=== PATIENT | female | born 1945 | race Caucasian/White ===

== ENCOUNTER → 2019-08-26 11:10 | Outpatient (BNVA) | payer MEDICARE, SELFPAY | PROVIDERS: Family Provider Family Medicine; PCP Family Medicine; Visit Provider Family Medicine | DX: E78.5 Hyperlipidemia, unspecified (principal); J30.9 Allergic rhinitis, unspecified; I10 Essential (primary) hypertension | CPT/HCPCS: 80053; 80061; 84443; 85025 ==

== ENCOUNTER → 2020-02-08 10:38 | Outpatient (BNVA) | payer MEDICARE, SELFPAY | PROVIDERS: Family Provider Family Medicine; PCP Family Medicine; Visit Provider Family Medicine | DX: W57.XXXA Bitten or stung by nonvenomous insect and other nonvenomous arthropods, initial encounter (principal); E78.5 Hyperlipidemia, unspecified; I10 Essential (primary) hypertension; Z20.828 Contact with and (suspected) exposure to other viral communicable diseases; R53.83 Other fatigue | CPT/HCPCS: 85025; 86618; 86666; 86757; 87635 ==

== ENCOUNTER 2020-03-09 12:56 | Outpatient (CLI) | payer MEDICARE, SELFPAY ==
--- NOTE | 2020-03-09 13:14 | MM_ITS ---
WS: [id number] SCREENING DIGITAL MAMMOGRAM WITH CAD HISTORY: SCREENING COMPARISON: 01/01/2019 and 11/04/2017 Bilateral CC and MLO views submitted. Computer aided detection analyzed. Breast composition: There are scattered areas of fibroglandular density. No suspicious masses, microc alcifications or architectural distortion. MM/[id number] IMPRESSION: BI-RADS: 1-Negative FOLLOW UP: 1 Year Follow-up
== END 2020-03-09 12:57 | disposition home or self-care (01) ==
LOC: RADSHAW 12:59
PROVIDERS: PCP Family Medicine; Visit Provider Family Medicine
DX: Z12.31 Encounter for screening mammogram for malignant neoplasm of breast (principal)
CPT/HCPCS: 77067

== ENCOUNTER → 2020-03-14 15:41 | Outpatient (BNVA) | payer MEDICARE, SELFPAY | PROVIDERS: PCP Family Medicine; Visit Provider Family Medicine | DX: J02.9 Acute pharyngitis, unspecified (principal); R53.83 Other fatigue; F17.211 Nicotine dependence, cigarettes, in remission; Z71.89 Other specified counseling | CPT/HCPCS: 86308; 87071; 87880 ==

== ENCOUNTER 2020-06-16 13:38 | Outpatient (CLI) | payer MEDICARE, SELFPAY ==
--- NOTE | 2020-06-16 14:15 | USCV_ITS ---
Paulina Warren Age: 74 Gender: F : 1945 Exam Date: 06/16/2020 14:10 Ordering Phys: Ray Murguia M.D ([email or web address]) Technologist: Michelle Reyna Exam Location: [facility] [place] Indication: SHORTNESS OF BREATH BP: 161 / 79 HR: 78 Rhythm: Sinus Technical Quality: Adequate MEASUREMENTS (Male / Female) Normal Values 2D ECHO LV Diastolic Diameter PLAX 3.9 cm 4.2 - 5.9 / 3.9 - 5.3 cm LV Systolic Diameter PLAX 2.7 cm LV Chamber Size 2.3 cm IVS Diastolic Thickness 0.7 cm 0.6 - 1.0 / 0.6 - 0.9 cm IVS Systolic Thickness 1.0 cm LVPW Diastolic Thickness 1.7 cm 0.6 - 1.0 / 0.6 - 0.9 cm LVPW Systolic Thickness 1.8 cm RV Chamber Size 2.3 cm LVOT Diameter 2.0 cm LV Ejection Fraction 2D Teich 59.8 % LV Ejection Fraction MOD 2C 56.3 % LV Ejection Fraction 2C AL 56.5 % LA Diameter 2.8 cm LA Width 2.6 cm LA Height 2.9 cm RA Width 2.6 cm RA Height 2.8 cm Aorta at Sinotubular Diameter 2.0 cm M-MODE LV Diastolic Diameter MM 3.2 cm 4.2 - 5.9 / 3.9 - 5.3 cm LV Systolic Diameter MM 2.3 cm LV Ejection Fraction MM Teich 58.5 % IVS Diastolic Thickness MM 1.2 cm 0.6 - 1.0 / 0.6 - 0.9 cm IVS Systolic Thickness MM 0.9 cm LVPW Diastolic Thickness MM 1.2 cm 0.6 - 1.0 / 0.6 - 0.9 cm LVPW Systolic Thickness MM 1.3 cm Aortic Annulus Diameter 3.0 cm LA Ao Ratio MM 1.0 MV E Point Septal Separation 0.6 cm DOPPLER AV Peak Velocity 155.0 cm/s LVOT Peak Velocity 104.7 cm/s AV Area Cont Eq vti 2.1 cm squared AV Area Cont Eq pk 2.1 cm squared MV Area PHT 6.3 cm squared Mitral E to A Ratio 0.8 MV E' Velocity 51.0 cm/s Mitral E to MV E' Ratio 7.5 Mitral E to LV E' Lateral Ratio 7.3 Mitral E to LV E' Septal Ratio 7.8 TR Peak Velocity 324.0 cm/s TR Peak Gradient 42.0 mmHg TV Peak E Velocity 84.0 cm/s Right Atrial Pressure 3.0 mmHg Pulmonary Artery Systolic Pressu 45.0 mmHg PV Peak Velocity 98.0 cm/s RV Acceleration Time 0.1 s RV Ejection Time 0.3 s RV AcT/ET 0.4 FINDINGS Left Ventricle Normal left ventricular size. LV systolic function is mildly reduced with EF of 40-45%. Mild to moderate hypokinesis of the basal to apical anterior and anterolateral quan. Grade 1 diastolic dysfunction Right Ventricle The right ventricle is normal in size and function. Right Atrium The right atrium is normal in size. Left Atrium The left atrium is normal in size. Mitral Valve Structurally normal mitral valve without significant stenosis or prolapse. There is no mitral regurgitation. Aortic Valve Structurally normal aortic valve without significant sclerosis or stenosis. There is no aortic regurgitation. Tricuspid Valve Structurally normal tricuspid valve without significant stenosis or regurgitation. Insufficient TR jet to calculate RVSP Pulmonic Valve Structurally normal pulmonic valve without significant stenosis. There is no pulmonic regurgitation. Pericardium Normal pericardium without effusion. Aorta Normal ascending aorta dimension. CONCLUSIONS LV systolic function is mildly reduced with EF of 40-45%. Regional wall motion abnormalities as described above Grade 1 diastolic dysfunction No significant valvular heart disease. No comparison studies are available. Ray Murguia MD (Electronically Signed) Final Date: 22 June 2020 10:22 S
== END 2020-06-16 13:39 | disposition home or self-care (01) ==
LOC: RAD 13:39
PROVIDERS: PCP Family Medicine; Visit Provider Internal Medicine
DX: R06.02 Shortness of breath (principal)
CPT/HCPCS: 93306

== ENCOUNTER → 2020-07-01 10:28 | Outpatient (BNVA) | payer MEDICARE, SELFPAY | PROVIDERS: PCP Family Medicine; Visit Provider Internal Medicine | DX: R06.00 Dyspnea, unspecified (principal); R53.83 Other fatigue | CPT/HCPCS: 87635 ==

== ENCOUNTER 2020-07-06 08:49 | Day surgery (SDC) | payer MEDICARE, SELFPAY ==
[2020-07-01 10:17] LABS: Basophils % 0.6 %; Eosinophils % 0.6 %; Hematocrit 38.5 % (37.0-47.0); Hemoglobin 12.3 g/dL (11.5-15.3); Lymphocytes # 1.2 10^3/uL (0.8-4.8); Lymphocytes % 18.6 %; Mean Corpuscular HGB Conc 31.9 g/dL (30.0-36.0); Mean Corpuscular Hemoglobin 29.6 pg (28.0-34.0); Mean Corpuscular Volume 92.8 fL (81-99); Mean Platelet Volume 9.3 fL (7.4-10.4); Monocytes # 0.4 10^3/uL (0.2-0.9); Neutrophils # 4.56 10^3/uL (1.8-7.7); Nucleated Red Blood Cells % 0 %; Platelet Count 283 10^3/cmm (130-400); Red Blood Count 4.15 10^6/uL (4.1-5.3); Red Cell Distribution Width 11.4 % (12.1-15.1); White Blood Count 6.3 10^3/uL (4.0-10.0)
[2020-07-01 10:33] LABS: Blood Urea Nitrogen 14 mg/dL (8-23); Calcium 9.8 mg/dL (8.5-10.5); Carbon Dioxide 29 mmol/L (22-29); Glucose 109 mg/dL (65-115)
[2020-07-01 10:45] LABS: INR 0.94 (0.83-1.21); Prothrombin Time (Patient) 12.8 Seconds (12.0-15.1)
[2020-07-01 13:14] LABS: Anion Gap 13.5 (5-19); Chloride 100 mmol/L (98-107); Osmolality Calculated 287 mOsm/kg (285-295); Potassium 4.5 mmol/L (3.5-5.1); Sodium 138 mmol/L (136-145)
[2020-07-05 08:28] VITALS: BMI 22.8
[2020-07-06] VITALS (25 sets, daily range): BP systolic 86–160; BP diastolic 53–79; PULSE 64–93; RESP 12–18; TEMP 36.4–37.1; O2SAT 93–98
[2020-07-06] MEDS: diphenhydrAMINE 50 mg Capsule PO (09:24)
--- NOTE | 2020-07-06 10:00 | XACV_ITS ---
Exam Room: [facility] Ht: 157 cm Wt: 57 kg BSA: 1.58 m2 Gender: Female : 1945 Exam Priority: Routine Procedure(s): Procedure Description: Diagnostic procedure Procedure Description: Left Heart Catheterization Procedure Description: Right Heart Catheterization Procedure Description: O2 saturation Procedure Description: Pressure Wire Diagnostic Cath Status: Elective Diagnostic Findings * Mid Left Anterior Descending Coronary Artery: Moderate 40-50% stenosis, SOBEIDA: 3 flow. Plan for FFR of mid LAD. * Right heart cath findings: RA pressure: 6/4 (4)mmHg, RV pressure: 30/1 (5)mmHg PA pressure: 27/10(17)mmHg PCW: 8/7(6)mmHg TPmmHg, Cardiac output by Torito: 4.55 l/min, CI: 2.9l/min/m2 PVR: 2.41wood units. * LM has 0% stenosis. * CX has 0% stenosis. * RCA has 0% stenosis. * Coronary angiography shows right dominance. Interventional Findings * Procedure detail: We engaged left main artery using XB 3.5 guide catheter. IV heparin was used to maintain an ACT above 250 seconds. We initially performed FFR of proximal LAD stenosis which was nonischemic with a value of 0.88. Pressure wire was removed. At this time final angiogram was performed that showed SOBEIDA-3 flow without any complications. Guide catheter was removed. Hemostasis was obtained with TR band. Patient left the Project/Production Manager Imaging in a stable condition.. Conclusions 1. There is moderate mid LAD stenosis. s/p FFR which had a non-ischemic value of 0.88. 2. Normal right and left sided cardiac pressures. 3. Mild left ventricular systolic dysfunction. Ejection fraction of 45%. Recommendations * Aggressive risk factor control. * Outpatient cardiology follow up. Interventional RX Recommendation: medical therapy and/or counseling Diagnostic RX Recommendation: medical therapy and/or counseling Anticoagulation: Heparin Ventriculography Ejection Fraction: 45.0 % Pressures Phase:Rest AO : 148 / 69 ( 103 ) @ 6:14:00 AM 148 / 68 ( 103 ) @ 6:14:00 AM LV : 135 / -5 / @ 6:13:00 AM 135 / -6 / @ 6:13:00 AM 142 / -4 / @ 6:14:00 AM 141 / -5 / @ 6:14:00 AM 141 / -5 / @ 6:14:00 AM RV : 30 / 1 / @ 5:41:00 AM PA : 27 / 10 ( 17 ) @ 5:39:00 AM RA : a wave = v wave = mean = 4 @ 5:41:00 AM O2 Content Phase:Rest PA : O2 Content O2: 70.1 @ 6:14:00 AM Saturations Phase:Rest AO : 90 @ 6:14:00 AM PA : 70 @ 6:14:00 AM Cardiac Output Phase:Rest Torito : 5 @ 6:14:00 AM Torito Cardiac Index: 3 @ 6:14:00 AM Valves Phase:DefaultPhase AV : 0.0 @ 10:26:06 AM AV Mean Gradient: 0.0 @ 10:26:06 AM Clinical Evaluation EBL: 5mL-10mL Procedural Details Procedure Consent Obtained. Admit Source: Out Patient. Pre-Procedure Time Out. Identified patient by full name and date of as verbalized by the patient/guarantor. Does the consent match the physician's order: Yes. Accurate & Complete Informed Consent: Yes. Inpatient/Outpatient History & Physical on Chart: Yes. If H&P is completed, is and addenduem needed: N/A; If yes, is the addendum complete: N/A. Visualize and Verify Site with Patient/Guarantor: N/A. Relevant Radiology Images available: N/A. Pre-op teaching completed and patient verbalized understanding. The risks, benefits, and alternatives of sedation and/or procedure were discussed by physician. The patient agrees to continue. Procedure started. [facility] Clinical Fraility Score: 3: Managing Well. Project/Production Manager Imaging Indications: LV Dysfunction. Chest Pain Symptom Assessment: Atypical Angina. Cardiovascular Instability: NO. Correct patient, site and procedure confirmed by cath team. PERRLA. Strong, equal hand laboratory apparatus glass grinder bilaterally. Lungs clear x 5 lobes. IV Site on Arrival: 20 gauge in the left anticubital. Pre Procedural Pulses: right dorsalis pedis was 1+. Pre Procedural Pulses: left dorsalis pedis was 3+. Pre Procedural Pulses: bilateral posterior tibial was 3+. Pre Procedural Pulses: bilateral radial was 3+. bilateral groins was prepped with chloroprep then draped in the usual sterile fashion. right radial was prepped with chloroprep then draped in the usual sterile fashion. Physician notified. Baseline sample Acquired. HR: 90 BPM. Physician arrived. Physician scrubbed in. Immediate Pre-Procedure Time Out. Correct Patient: Yes; Correct Procedure: Yes; Correct Site: Yes; Correct Patient Position: Yes; Correct Supplies: Yes; Dried Flammable Prep: Yes; Blood Products Available: N/A;. Lidocaine 1% infiltrated to the right groin. Venous access obtained. more lidocaine 1%. [place] VIP catheter inserted. [place] out. Lidocaine 1% infiltrated to the right radial. Arterial access obtained. oxygen placed 2LPM NC. A 5 solomon islander TIG catheter in over wire. Multiple views taken of left coronary artery. Catheter redirected to the RCA. Multiple views taken of right coronary artery. Catheter out. 6 sol[place] islander XB 3.5 guide catheter was inserted over the wire. pressure wire inserted. An FFR value of 0.88 was obtained for a lesion located at Mid LAD. pressure wire out. Guide catheter out. A 5 solomon islander Angled Pig catheter in over wire. EDP Sample taken: LV 135/-6,19; HR: 70 BPM; SpO2: 100%. LV gram performed in MEYERS @ 10 mL/second for a total of 30 mL. EDP Sample taken: LV 142/-5,20; HR: 70 BPM; SpO2: 100%. Pullback taken: LV 141/-6,20; AO 148/69(103); Mean: 0mmHg, Peak to Peak: 0mmHg, SEP: 6sec/min; HR: 70 BPM; SpO2: 100%. TR band placed. Hemostasis obtained. Sheath(s) sutured into position with 2-0 silk and sterile 4x4's and Op-site applied over the site. No oozing or signs and symptoms of hematoma noted. Post Procedure: Pulses reassessed and unchanged. PERRLA. Strong, equal hand laboratory apparatus glass grinder bilaterally. No VTE prophylaxis required. Medication's Wasted: Lidocaine 1% = 15 mL. Medication's Wasted: Nitro = 49.8 mg. Medication's Wasted: Heparin = 4000 units. Total IV fluids: 100 mL. Contrast type used: Omnipaque 300 mgI/mL, 500 mL bottle. Contrast Material : Omnipaque 145 ml. A TR Band was successful obtaining hemostatsis at the Right Radial artery insertion site. A Suture was successful obtaining hemostatsis at the Right Femoral vein insertion site. Post-op diagnosis: moderate LAD stenosis, FFR normal. Complications: none. Estimated blood loss: 5mL-10mL. Procedure completed. Patient transferred by bed to 1st floor. Vital chart was stopped. Catheter out. Access Site Site: Right Femoral vein Sheath Size: 8 Fr Hemostasis Method: Suture Hemostasis Success: Successful Site: Right Radial artery Sheath Size: 6 Fr Hemostasis Method: TR Band Hemostasis Success: Successful Procedure Medications Start: 10:29 AM Stop: 10:29 AM Medication: Versed Amount: 1 mg Route: I.V. Start: 10:29 AM Stop: 10:29 AM Medication: Fentanyl Amount: 50 mcg Route: I.V. Start: 10:42 AM Stop: 10:42 AM Medication: Versed Amount: 1 mg Route: I.V. Start: 10:42 AM Stop: 10:42 AM Medication: Fentanyl Amount: 50 mcg Route: I.V. Start: 10:49 AM Stop: 10:49 AM Medication: Nitrogylcerin Amount: 200 mcg Route: I.A. Start: 10:51 AM Stop: 10:51 AM Medication: Heparin Amount: 5000 units Route: I.V. Start: 10:57 AM Stop: 10:57 AM Medication: Heparin Amount: 2000 units Route: I.V. Start: 11:06 AM Stop: 11:06 AM Medication: Adenosine (Adenocard) Amount: 479 Route: I.V. I, the attending physician, have reviewed and verified all procedure medications. Yes, all medications given per verbal order History/Risk Factors Hypertension: Yes Dyslipidemia: Yes Tobacco Use: Former Report Signatures Finalized by Ray Murguia MD on 07/19/2020 05:27 PM
--- NOTE | 2020-07-06 10:20 | PM.HP ---
Providers/Chief Complaint Admitting Physician: Ray Murguia MD Primary Care Provider: Kate Herron MD Chief Complaint: cath History of Present Illness 74-year-old woman with past medical history of hypertension and hyperlipidemia. No significant coronary artery disease. She has been noticing shortness of breath especially on exertion since December. Patient has remote history of smoking. She denies chest pain. However dyspnea on exertion has been worsening. ECHO showed decrease in the heart function. Patient has occasional jaw pain Plan for a right and left heart cath today Review of Systems General: Reports: 10 or more systems reviewed and unremarkable except in HPI and below Const: Denies: fever(s), chills, body aches or fatigue Eyes: Denies: change in vision or blurry vision ENMT: Denies: throat pain, ear or mastoid pain, nasal discharge or nasal congestion Card: Reports: lightheadedness and dyspnea on exertion; Denies: chest pain, palpitations, irregular heart rhythm, swelling of feet/ankles, orthopnea, leg pain with exertion or acrocyanosis Resp: Reports: dyspnea; Denies: productive cough, non-productive cough, wheezing or chest congestion GI: Denies: abdominal pain, GI cramping, change in bowel habits or hematochezia : Denies: dysuria or urinary frequency Musc: Reports: neck pain; Denies: extremity pain or extremity swelling Skin/Breast: Denies: rash, pruritus, erythema or sores Neuro: Reports: headache(s) and weakness in extremities (bilateral lower extremity); Denies: numbness in extremities, difficulty walking, dizziness or vertigo Psych: Denies: anxiety or depression Gaurav/Lymph: Denies: easy bruising or easy bleeding Medications/Allergies Home Medications Medication Instructions Recorded Confirmed Last Taken Type ascorbate calcium (vitamin C) 500 500 mg PO QDAY 04/30/19 07/05/20 07/05/20 07:30 History mg tablet cyanocobalamin (vitamin B-12) 1,000 mcg PO QDAY 04/30/19 07/05/20 07/05/20 07:30 History 1,000 mcg tablet,extended release fluticasone propionate 50 1 spray INTRANASAL BID PRN 04/30/19 07/05/20 07/05/20 07:30 History mcg/actuation nasal spray,suspension vitamin E 200 unit capsule 200 unit PO QDAY 04/30/19 07/05/20 07/05/20 07:30 History aspirin 81 mg tablet,delayed 81 mg PO DAILY 08/26/19 07/06/20 07/06/20 07:00 History release cetirizine 10 mg tablet 10 mg PO DAILY #90 tab 08/26/19 07/05/20 07/05/20 07:30 Rx lisinopril 10 mg tablet 10 mg PO QDAY #90 tab 02/08/20 07/05/20 07/06/20 07:00 Rx pravastatin 20 mg tablet 20 mg PO QDAY #90 tab 02/08/20 07/06/20 07/05/20 19:00 Rx famotidine 40 mg tablet 40 mg PO .qhs #30 tab 02/25/20 07/05/20 07/05/20 07:30 Rx ondansetron 4 mg disintegrating 4 mg PO Q6H PRN 03/14/20 07/05/20 07/05/20 07:30 History tablet Allergies Allergy/AdvReac Type Severity Reaction Status Date / Time No Known Allergies Allergy Verified 07/05/20 08:23 PFSH Acute PFSH: Medical History Anxiety Basal cell carcinoma History of gastric ulcer Hyperlipidemia Hypertension Vitamin D insufficiency Surgical History History of appendectomy History of tubal ligation Family History Other Hypertension Social History Smoking and tobacco status: former smoker Quit status (tobacco): has quit using tobacco Year quit tobacco: 1970 Alcohol intake: never Household members: spouse Vitals/I&O/Wt Last Vital Signs Temp 98.7 F 07/06/20 09:24 Pulse 93 07/06/20 09:24 Resp 18 07/06/20 09:24 BP 160/79 07/06/20 09:24 Pulse Ox 96 07/06/20 09:24 Weight last 48 hrs Weight 125 lb Physical Exam Narrative: EXAM NARRATIVE: GENERAL: Patient is alert, awake and oriented x3. [] NECK: No jugular vein distension. [] HEENT: No cyanosis. No icterus. No pallor. [] HEART: Regular S1 and S2. No murmur, rub or gallop. [] LUNGS: Clear to auscultate bilaterally. [] ABDOMEN: Soft, nontender and nondistended. Positive bowel sounds. No guarding, rebound or tenderness. [] CENTRAL NERVOUS SYSTEM: Grossly nonfocal. [] EXTREMITIES: Lower extremities with no edema bilaterally. Pulses palpable in the lower extremities, both dorsalis pedis and posterior tibial. [] Data : 07/01/20 10:07 07/01/20 10:07 A&P Assessment and plan (1) Dyspnea on exertion: Status: Acute (2) HFrEF (heart failure with reduced ejection fraction): Status: Acute (3) Hypertension: Status: Acute (4) Hyperlipidemia: Status: Acute Patient has been having significant dyspnea on exertion that is worsening recently. She has occasional jaw discomfort however no chest pain. Given her recent diagnosis of heart failure with reduced EF(EF was 40 to 45% on last echocardiogram) with regional wall motion abnormalities, we will proceed with right and left heart cath. Risks and benefits of the procedure have been described to the patient. Risks including bleeding, infection, abnormal heart rhythm, kidney function worsening, heart attack, stroke or have been described. Patient understands the risks and benefits and wants to proceed with the procedure. Attestations Medical Necessity Statement*: Care not expected to cross 2 midnights. Patient is here for outpatient right and left heart cath with possible percutaneous coronary intervention. Coding Level of Care Code Acute Central Supply Clerk for Marisol Roberson Diagnoses Dyspnea on exertion R06.00 HFrEF (heart failure with reduced ejection fraction) I50.20 Hypertension I10 Hyperlipidemia E78.5
--- NOTE | 2020-07-06 12:55 | PC.NURSE ---
Patient to CSU from record label internship at 1130. 2 nurse verification of insertion sites. TR band intact, asymptomatic. Right groin, no sheath present upon arrival to floor, OIL WELL PUMPER, asymptomatic. Site cleaned and dressing applied. Dr. Murguia notified sheath was no longer in place. Verbal order to hold direct pressure for 5 minutes. Order implemented. Patient tolerated well. Nurse to continue to monitor. Patient educated on activity restrictions, verbalized understanding and did not have any further questions. Patient oriented to room and call light. VSS, patient A&O.
--- NOTE | 2020-07-06 13:56 | PC.NURSE ---
TR Band started removing air at 1340.
--- NOTE | 2020-07-06 15:51 | PC.NURSE ---
Ambulated Patient's bedrest time is up, patient requested to ambulate. When patient stood up from bed she had bleeding from Right Radial access site. Arm elevated and pressure added to TR band until bleeding stopped. Patient's arm cleansed, new gown placed on patient. Patient then ambulated in chinchilla with standby assistance.
--- NOTE | 2020-07-06 17:22 | PC.NURSE ---
TR Band removed 1645, no bleeding noted. 2x2 quadrupled over access site, biocclusive applied. Patient monitored for 45 minutes without bleeding. No hematoma or bleeding noted to right radial or right femoral access site.
--- NOTE | 2020-07-06 17:25 | PC.NURSE ---
DC instructions given to patient and , explained post op precautions/instructions. Patient wheeled to private vehicle by this nurse, driving, belongings with patient.
== END 2020-07-06 17:30 | disposition home or self-care (01) ==
LOC: CCL 08:49 → CSU 10:22
PROVIDERS: PCP Family Medicine; Visit Provider Internal Medicine
DX: I25.10 Atherosclerotic heart disease of native coronary artery without angina pectoris (principal); R06.00 Dyspnea, unspecified; I11.0 Hypertensive heart disease with heart failure; I50.20 Unspecified systolic (congestive) heart failure; E78.5 Hyperlipidemia, unspecified; R53.83 Other fatigue; Z79.82 Long term (current) use of aspirin; F41.9 Anxiety disorder, unspecified; E55.9 Vitamin D deficiency, unspecified; Z87.891 Personal history of nicotine dependence
CPT/HCPCS: 36415; 80048; 85025; 85610; 93453; 93571; C1751; C1769; C1887; C1894; J0153; J1644; J2250; J3010; J7030; Q0163; Q9967

== ENCOUNTER → 2020-07-13 13:53 | Outpatient (BNVA) | payer MEDICARE, SELFPAY | PROVIDERS: PCP Family Medicine; Visit Provider Nurse Practitioner Family | DX: I50.20 Unspecified systolic (congestive) heart failure (principal); I10 Essential (primary) hypertension | CPT/HCPCS: 80048 ==

== ENCOUNTER → 2020-08-29 09:30 | Outpatient (BNVA) | payer MEDICARE, SELFPAY | PROVIDERS: PCP Family Medicine; Visit Provider Family Medicine | DX: E55.9 Vitamin D deficiency, unspecified (principal); E78.2 Mixed hyperlipidemia; I10 Essential (primary) hypertension; K21.9 Gastro-esophageal reflux disease without esophagitis; E78.5 Hyperlipidemia, unspecified; J30.9 Allergic rhinitis, unspecified; I25.10 Atherosclerotic heart disease of native coronary artery without angina pectoris | CPT/HCPCS: 80053; 80061; 82306; 84443; 85025 ==

== ENCOUNTER → 2020-10-06 17:00 | Outpatient (BNVA) | payer MEDICARE, SELFPAY | PROVIDERS: PCP Family Medicine; Visit Provider Family Medicine | DX: Z20.828 Contact with and (suspected) exposure to other viral communicable diseases (principal) | CPT/HCPCS: 87635 ==

== ENCOUNTER → 2020-11-16 11:40 | Outpatient (BNVA) | payer MEDICARE, SELFPAY | PROVIDERS: PCP Family Medicine; Visit Provider Internal Medicine | DX: Z01.812 Encounter for preprocedural laboratory examination (principal); Z20.822 Contact with and (suspected) exposure to COVID-19 | CPT/HCPCS: 87635 ==

== ENCOUNTER → 2020-12-23 10:46 | Outpatient (BNVA) | payer MEDICARE, SELFPAY | PROVIDERS: PCP Family Medicine; Visit Provider Internal Medicine | DX: Z20.822 Contact with and (suspected) exposure to COVID-19 (principal); I50.20 Unspecified systolic (congestive) heart failure; R06.00 Dyspnea, unspecified | CPT/HCPCS: 87635 ==

== ENCOUNTER 2020-12-29 12:28 | Outpatient (CLI) | payer MEDICARE, SELFPAY ==
--- NOTE | 2020-12-29 13:13 | PFTS_ITS ---
Date of Study:12/29/20 Date of Dictation: 12/30/2020 MECHANICS: Forced vital capacity (FVC) is normal. Forced expiratory volume in one second (FEV1) is normal. FEV1/FVC is normal. There is no postbronchodilator study. FLOW VOLUME LOOP: Normal . LUNG VOLUMES: Total lung capacity (TLC) is normal. Residual volume (RV) is increased to suggestive of air trapping. DIFFUSING CAPACITY FOR CARBON MONOXIDE: Normal normal . INTERPRETATION: The pulmonary function tests are normal except mild air trapping noted on lung volumes indirectly suggestive of possible airway obstruction. Correlate clinically. MTDD
== END 2020-12-29 12:29 | disposition home or self-care (01) ==
PROVIDERS: PCP Family Medicine; Visit Provider Internal Medicine
DX: R06.00 Dyspnea, unspecified (principal); I50.20 Unspecified systolic (congestive) heart failure
CPT/HCPCS: 94010; 94726; 94729

== ENCOUNTER → 2021-02-01 17:21 | Outpatient (BNVA) | payer MEDICARE, SELFPAY | PROVIDERS: PCP Family Medicine; Visit Provider Nurse Practitioner Family | DX: R11.0 Nausea (principal); R10.9 Unspecified abdominal pain; R53.83 Other fatigue; M79.10 Myalgia, unspecified site; K21.9 Gastro-esophageal reflux disease without esophagitis; R53.1 Weakness; R68.89 Other general symptoms and signs; R06.00 Dyspnea, unspecified; E55.9 Vitamin D deficiency, unspecified; N95.1 Menopausal and female climacteric states; Z79.899 Other long term (current) drug therapy | CPT/HCPCS: 80053; 82150; 82306; 82607; 82746; 83690; 85025 ==

== ENCOUNTER → 2021-04-24 11:38 | Outpatient (BNVA) | payer MEDICARE, SELFPAY | PROVIDERS: PCP Family Medicine; Visit Provider Nurse Practitioner Family | DX: I10 Essential (primary) hypertension (principal); E78.2 Mixed hyperlipidemia; F41.9 Anxiety disorder, unspecified; E55.9 Vitamin D deficiency, unspecified | CPT/HCPCS: 80053; 80061 ==

== ENCOUNTER → 2021-08-04 09:30 | Outpatient (BNVA) | payer MEDICARE, SELFPAY | PROVIDERS: PCP Nurse Practitioner Family; Visit Provider Nurse Practitioner Family | DX: I10 Essential (primary) hypertension (principal); E78.5 Hyperlipidemia, unspecified; I50.20 Unspecified systolic (congestive) heart failure; F41.9 Anxiety disorder, unspecified; J45.909 Unspecified asthma, uncomplicated; Z83.1 Family history of other infectious and parasitic diseases; Z12.39 Encounter for other screening for malignant neoplasm of breast; Z78.0 Asymptomatic menopausal state; K21.9 Gastro-esophageal reflux disease without esophagitis | CPT/HCPCS: 80053; 80061 ==

== ENCOUNTER 2021-08-31 12:49 | Outpatient (CLI) | payer MEDICARE, SELFPAY ==
--- NOTE | 2021-08-31 13:28 | MM_ITS ---
WS: [id number] BILATERAL 3D TOMOSYNTHESIS DIGITAL SCREENING MAMMOGRAPHY WITH CAD CLINICAL INFORMATION: screening HISTORY: Screening mammogram. No current complaints. COMPARISON: March 09, 2020 TECHNIQUE: Bilateral CC and MLO views. FINDINGS: Scattered fibroglandular densities bilaterally. Vascular calcification. No suspicious focal mass, asy mmetry, calcifications, or architectural distortion. No evidence of malignancy. MM/[place] [id number] IMPRESSION: BI-RADS: 2-Benign FOLLOW UP: 1 Year Follow-up Recommend return to annual screening mammography.
== END 2021-08-31 12:50 | disposition home or self-care (01) ==
LOC: RAD 12:53
PROVIDERS: PCP Nurse Practitioner Family; Visit Provider Nurse Practitioner Family
DX: Z12.31 Encounter for screening mammogram for malignant neoplasm of breast (principal)
CPT/HCPCS: 77063; 77067

== ENCOUNTER 2021-09-05 14:34 | Outpatient (CLI) | payer MEDICARE, SELFPAY ==
--- NOTE | 2021-09-05 14:41 | XR_ITS ---
WS: [id number] DEXA (DUAL ENERGY X-RAY ABSORPTIOMETRY) Bone mineral density was performed using a Jasper machine. HISTORY: screening COMPARISON: None available. Lumbar spine BMD (L1-L4): 0.990 g/cm2 T score: -1.6 Z score: 0.5 Total hip BMD: Left: 0.688 g/cm2. T score: -2.5 Z score: -0.4 Right: 0.725 g/cm2. T score: -2.2 Z score: -0.1 10 year probability of a major osteoporotic fracture is XR/XR DEXA axial skeleton* [id number] IMPRESSION: OSTEOPOROSIS based upon the WHO classification for females.
== END 2021-09-05 14:35 | disposition home or self-care (01) ==
LOC: RAD 14:34
PROVIDERS: PCP Nurse Practitioner Family; Visit Provider Nurse Practitioner Family
DX: Z13.820 Encounter for screening for osteoporosis (principal); Z78.0 Asymptomatic menopausal state; M81.0 Age-related osteoporosis without current pathological fracture
CPT/HCPCS: 77080

== ENCOUNTER 2021-10-20 09:45 | Outpatient (CLI) | payer MEDICARE, SELFPAY ==
--- NOTE | 2021-10-20 10:00 | US_ITS ---
WS: [id number] ULTRASOUND ABDOMEN LIMITED CLINICAL INFORMATION: Nausea COMPARISON: None. FINDINGS: Liver Size: Normal. Craniocaudal length: 11.9 cm. Echogenicity: Normal. Surface nodularity: None. Mass (size and location): Incidental RIGHT hepatic cyst measuring 1.4 x 1.7 x 2.3 cm with through tra nsmission. Bile ducts Intrahepatic ducts: Normal. Common bile duct diameter: 0.3 cm. Gallbladder Normal. Gallstones: None. Gallbladder sludge: None. Gallbladder wall thickening: None. Pericholecystic fluid: None. Sonographic Kelley sign: Absent. Pancreas Normal as visualized. Right kidney: Normal. Hydronephrosis: None. Size: 9.1 cm x 5.1 cm x 2.9 cm. Abdominal aorta and IVC Visualized portions are normal. Ascites: None. US/US gall bladder [id number] IMPRESSION: 1. Normal gallbladder. 2. Simple RIGHT hepatic cyst measuring 1.4 x 1.7 x 2.3 cm 3. Normal common bile duct. 4. No hydronephrosis in RIGHT kidney.
== END 2021-10-20 09:46 | disposition home or self-care (01) ==
LOC: RAD 09:46
PROVIDERS: PCP Nurse Practitioner Family; Visit Provider Nurse Practitioner Family
DX: R11.0 Nausea (principal); R10.9 Unspecified abdominal pain; K76.89 Other specified diseases of liver
CPT/HCPCS: 76705

== ENCOUNTER → 2022-02-06 11:36 | Outpatient (BNVA) | payer MEDICARE, SELFPAY | PROVIDERS: PCP Nurse Practitioner Family; Visit Provider Nurse Practitioner Family | DX: R00.2 Palpitations (principal); M81.0 Age-related osteoporosis without current pathological fracture; R53.1 Weakness; R53.83 Other fatigue; I50.20 Unspecified systolic (congestive) heart failure; E55.9 Vitamin D deficiency, unspecified; K21.9 Gastro-esophageal reflux disease without esophagitis; E78.5 Hyperlipidemia, unspecified; I10 Essential (primary) hypertension; M79.10 Myalgia, unspecified site; F41.9 Anxiety disorder, unspecified; E78.2 Mixed hyperlipidemia; J30.9 Allergic rhinitis, unspecified; J45.909 Unspecified asthma, uncomplicated | CPT/HCPCS: 80053; 80061; 84443 ==

== ENCOUNTER → 2022-07-16 15:20 | Outpatient (BNVA) | payer MEDICARE, SELFPAY | PROVIDERS: PCP Nurse Practitioner Family; Visit Provider Nurse Practitioner Family | DX: M25.552 Pain in left hip (principal); I50.20 Unspecified systolic (congestive) heart failure; E78.5 Hyperlipidemia, unspecified; I10 Essential (primary) hypertension; F41.9 Anxiety disorder, unspecified; E55.9 Vitamin D deficiency, unspecified; M79.10 Myalgia, unspecified site | CPT/HCPCS: 73502; 80053; 80061; 82306 ==

== ENCOUNTER → 2022-08-08 09:29 | Outpatient (BNVA) | payer MEDICARE, SELFPAY | PROVIDERS: PCP Nurse Practitioner Family; Referring Provider Nurse Practitioner Family; Visit Provider Specialist | DX: M16.12 Unilateral primary osteoarthritis, left hip (principal); M54.50 Low back pain, unspecified | CPT/HCPCS: 72110; 73502; 99204 ==

== ENCOUNTER → 2022-08-22 09:02 | Outpatient (BNVA) | payer MEDICARE, SELFPAY | PROVIDERS: PCP Nurse Practitioner Family; Visit Provider Nurse Practitioner Family | DX: Z83.1 Family history of other infectious and parasitic diseases (principal) | CPT/HCPCS: 86618; 86666; 86757 ==

== ENCOUNTER 2022-08-28 10:31 | Outpatient (CLI) | payer MEDICARE, SELFPAY ==
--- NOTE | 2022-08-28 11:00 | MR_ITS ---
WS: [id number] EXAMINATION: MR hip LT wo con* [id number] ORDER DATE: 08/28/2022 11:37 AM COMPARISON: None. HISTORY: left hip pain CONTRAST: None. TECHNIQUE: Coronal STIR of the Pelvis. Coronal proton density, coronal T1, axial T2 fat sat, axial T1 , sagittal T2 fat sat, and sagittal T1 performed of the hip. After contrast, axial T1 fat sat, coron al T1 fat sat, and sagittal T1 fat sat were performed. FINDINGS: Prominent fluid and edema along the LEFT greater trochanter compatible with trochanteric bu rsitis. No acute LEFT hip fractures. Small uterine fibroids partially visualized. Normal anatomic alignment. No acute fractures. Moderate degenerative arthritis both hips with joint space narrowing. Normal bone marrow signal in the pelvis and sacrum. Normal femoral head bilaterally. No evidence of avascular necrosis or acute fracture. Proximal femoral shafts appear normal bilaterally. Normal visualized pubic rami. MR/MR hip LT wo con* [id number] IMPRESSION: 1. Fluid and edema about the LEFT greater trochanter compatible with trochante xavi bursitis. 2. No acute hip fractures. 3. Moderate degenerative arthritis both hips with joint space narrowing. 4. Small uterine fibroids. 5. No other acute findings.
== END 2022-08-28 10:32 | disposition home or self-care (01) ==
LOC: RAD 10:34
PROVIDERS: PCP Nurse Practitioner Family; Visit Provider Specialist
DX: M16.0 Bilateral primary osteoarthritis of hip (principal); M54.50 Low back pain, unspecified; D25.9 Leiomyoma of uterus, unspecified
CPT/HCPCS: 73721; 99204

== ENCOUNTER 2022-09-05 13:29 | Outpatient (CLI) | payer MEDICARE, SELFPAY ==
--- NOTE | 2022-09-05 14:01 | MM_ITS ---
WS: [id number] BILATERAL 3D TOMOSYNTHESIS DIGITAL SCREENING MAMMOGRAPHY WITH CAD CLINICAL INFORMATION: SCREENING HISTORY: Screening mammogram. No current complaints. COMPARISON: August 31, 2021 TECHNIQUE: Bilateral CC and MLO views. FINDINGS: Scattered fibroglandular densities bilaterally. No suspicious focal mass, asymmetry, calcifications, or architectural distortion. No evidence of malignancy. Vascular calcification. MM/[place] [id number] IMPRESSION: BI-RADS: 2-Benign FOLLOW UP: 1 Year Follow-up Recommend return to annual screening mammography.
== END 2022-09-05 13:30 | disposition home or self-care (01) ==
LOC: RAD 13:33
PROVIDERS: PCP Nurse Practitioner Family; Visit Provider Nurse Practitioner Family
DX: Z12.31 Encounter for screening mammogram for malignant neoplasm of breast (principal)
CPT/HCPCS: 77063; 77067

== ENCOUNTER → 2022-09-18 13:59 | Outpatient (BNVA) | payer MEDICARE, SELFPAY | PROVIDERS: PCP Nurse Practitioner Family; Visit Provider Surgery | DX: R11.0 Nausea (principal); R10.11 Right upper quadrant pain | CPT/HCPCS: 99203 ==

== ENCOUNTER 2022-10-10 08:24 | Day surgery (SDC) | payer MEDICARE, SELFPAY ==
[2022-10-08 11:33] VITALS: BMI 22.1
[2022-10-10 09:08] VITALS: BP 183/90; PULSE 68; RESP 16; TEMP 36.4; O2SAT 97
--- NOTE | 2022-10-10 09:23 | W.PM.OPSUD ---
Surgery/Procedure H&P Update DATE OF PROCEDURE: October 10, 2022 DATE H&P PERFORMED: 09/18/22 H&P UPDATE INFORMATION: I have reviewed H&P completed within last 30 days, I have examined patient prior to procedure and No changes to prior documentation PLANNED PROCEDURE: Operation Date: 10/10/22 09:45 Proposed Procedures p EGD(Not Applicable) [place] [id number] egd [id number] colon, R11.0, Z12.11(Not Applicable) - Nigel Pace DO
[2022-10-10] MEDS: sodium chloride 0.9% 1,000 ML 30 ML IV (09:28)
--- NOTE | 2022-10-10 09:28 | P.ANESASSM_ITS ---
Documented by User: Morena Wu 10/10/22 09:29 Pre-Anesthetic Assessment Height/Weight: Height 1.6 m Weight 56.699 kg Temp Pulse Resp BP Pulse Ox O2 Del Method 97.5 F L 68 16 183/90 97 Room Air 10/10/22 09:08 10/10/22 09:08 10/10/22 09:08 10/10/22 09:08 10/10/22 09:08 10/10/22 09:08 Operation Date: 10/10/22 09:45 Proposed Procedures p EGD(Not Applicable) [place] [address] egd 10076 colon, R11.0, Z12.11(Not Applicable) - Nigel Pace DO Last intake: Intake Last Liquid Date 10/09/22 Last Liquid Time 21:30 Last Solid Date 10/08/22 Last Solid Time 18:00 CV/HEM 07/03 cath Conclusions ? 1. There is moderate mid LAD stenosis. s/p FFR which had a non-ischemic value of 0.88. ? 2. Normal right and left sided cardiac pressures. ? 3. Mild left ventricular systolic dysfunction. Ejection fraction of 45%. Recommendations ? * Aggressive risk factor control. ? * Outpatient cardiology follow up. 07/03 echo CONCLUSIONS ?LV systolic function is mildly reduced with EF of 40-45%. ?Regional wall motion abnormalities as described above ?Grade 1 diastolic dysfunction ?No significant valvular heart disease. ?No comparison studies are available. Medications/Allergies Home Medications Medication Instructions Recorded Confirmed Last Taken Type famotidine 40 mg tablet 40 mg PO DAILY PRN Heartburn 02/26/22 10/10/22 2 Weeks Ago History ~09/26/22 lisinopril 10 mg tablet 10 mg PO DAILY 90 days #90 tabs 07/16/22 10/08/22 10/09/22 Rx metoprolol tartrate 25 mg tablet 12.5 mg PO BID #90 tabs 07/16/22 10/08/22 10/10/22 07:00 Rx paroxetine HCl 10 mg tablet (Paxil) 10 mg PO DAILY 90 days #90 tabs 07/16/22 10/08/22 10/09/22 Rx pravastatin 20 mg tablet 20 mg PO DAILY #90 tabs 07/16/22 10/08/22 10/08/22 Rx alprazolam 0.5 mg tablet 0.25 mg PO TID PRN anxiety 10/08/22 10/08/22 10/09/22 History levocetirizine 5 mg tablet (Xyzal) 5 mg PO DAILY PRN Allergy Symptoms 10/08/22 10/10/22 2 Weeks Ago History ~09/26/22 Allergies Allergy/AdvReac Type Severity Reaction Status Date / Time No Known Allergies Allergy Verified 10/10/22 08:57 [facility], LAT[facility] Anesthesia Medical History (Updated 09/18/22 @ 15:12 by Nigel Pace DO) Anxiety Basal cell carcinoma History of gastric ulcer Hyperlipidemia Hypertension Microscopic hematuria Vitamin D insufficiency Surgical History (Updated 09/18/22 @ 15:10 by Nigel Pace DO) History of appendectomy History of esophagogastroduodenoscopy (EGD) 4-5 yrs ago History of tubal ligation Family History Other Hypertension Social History Smoking and tobacco status: former smoker Quit status (tobacco): has quit using tobacco Year quit tobacco: 1969 Alcohol intake: never Substance/Drug Use: never Household members: spouse Data Anesthesia Cardiac Studies: Echocardiogram Ultrasound 06/16/20 Documented by User: Halle Perez CRNA 10/10/22 09:36 Pre-Anesthetic Assessment Preop Diagnosis: chronic nausea Familial anesthetic complications: none Was Beta Tito taken within 24 hours: Yes Social No alcohol and No tobacco Exam alert, oriented x 3, clear to auscultation bilaterally and regular rate & rhythm Airway Submandibular: within normal limits Cervical ROM: within normal limits Mallampati: Class I Dentition: false Pulmonary Shortness of Breath (cant afford inhaler.) CV/HEM Coronary Artery Disease and Hypertension None reported Hepatic None reported GI Gastroesophageal Reflux Disease chronic nausea no vomiting Metabolic Hyperlipidemia Musc/skel None reported Neuropsych None reported Anesthetic Plan ASA status: 3 Anesthesia: MAC Medications/Allergies Home Medications Medication Instructions Recorded Confirmed Last Taken Type famotidine 40 mg tablet 40 mg PO DAILY PRN Heartburn 02/26/22 10/10/22 2 Weeks Ago History ~09/26/22 lisinopril 10 mg tablet 10 mg PO DAILY 90 days #90 tabs 07/16/22 10/08/22 10/09/22 Rx metoprolol tartrate 25 mg tablet 12.5 mg PO BID #90 tabs 07/16/22 10/08/22 10/10/22 07:00 Rx paroxetine HCl 10 mg tablet (Paxil) 10 mg PO DAILY 90 days #90 tabs 07/16/22 10/08/22 10/09/22 Rx pravastatin 20 mg tablet 20 mg PO DAILY #90 tabs 07/16/22 10/08/22 10/08/22 Rx alprazolam 0.5 mg tablet 0.25 mg PO TID PRN anxiety 10/08/22 10/08/22 10/09/22 History levocetirizine 5 mg tablet (Xyzal) 5 mg PO DAILY PRN Allergy Symptoms 10/08/22 10/10/22 2 Weeks Ago History ~09/26/22 Allergies Allergy/AdvReac Type Severity Reaction Status Date / Time No Known Allergies Allergy Verified 10/10/22 08:57 [facility] LAT[facility] Anesthesia Medical History (Updated 09/18/22 @ 15:12 by Nigel Pace DO) Anxiety Basal cell carcinoma History of gastric ulcer Hyperlipidemia Hypertension Microscopic hematuria Vitamin D insufficiency Surgical History (Updated 09/18/22 @ 15:10 by Nigel Pace DO) History of appendectomy History of esophagogastroduodenoscopy (EGD) 4-5 yrs ago History of tubal ligation Family History Other Hypertension Social History Smoking and tobacco status: former smoker Quit status (tobacco): has quit using tobacco Year quit tobacco: 1970 Alcohol intake: never Substance/Drug Use: never Household members: spouse Data Anesthesia Cardiac Studies: Echocardiogram Ultrasound 06/16/20
[2022-10-10 09:58] VITALS: BP 103/62; PULSE 87; RESP 16; TEMP 36.7; O2SAT 97
[2022-10-10 10:10] VITALS: BP 144/83; PULSE 82; RESP 16; TEMP 36.7; O2SAT 97
--- NOTE | 2022-10-10 15:52 | ANE.PACU2 ---
Inpatient post-anesthesia follow up: Airway intact: Yes Vital signs: Temperature 98.0 F Pulse Rate 82 Respiratory Rate 16 Blood Pressure 144/83 Pulse Oximetry 97 Oxygen Delivery Me thod Room Air Oxygen Flow Rate Fraction of Inspir ed Oxygen Hydration adequate: Yes Nausea and vomiting: No Pain level: 1 Mental status: Baseline
== END 2022-10-10 10:22 | disposition home or self-care (01) ==
PROVIDERS: PCP Nurse Practitioner Family; Visit Provider Surgery
PROC: 0DJ08ZZ Inspection of Upper Intestinal Tract, Via Natural or Artificial Opening Endoscopic (ICD-10-PCS; CPT 43235; principal; 2022-10-10 09:45)
PROC: 0DJD8ZZ Inspection of Lower Intestinal Tract, Via Natural or Artificial Opening Endoscopic (ICD-10-PCS; CPT 45378; 2022-10-10 09:45)
DX: Z12.11 Encounter for screening for malignant neoplasm of colon (principal); R11.0 Nausea; I25.10 Atherosclerotic heart disease of native coronary artery without angina pectoris; I10 Essential (primary) hypertension; F41.9 Anxiety disorder, unspecified; Z87.891 Personal history of nicotine dependence; K29.50 Unspecified chronic gastritis without bleeding; B96.81 Helicobacter pylori [H. pylori] as the cause of diseases classified elsewhere; K57.30 Diverticulosis of large intestine without perforation or abscess without bleeding; K64.8 Other hemorrhoids
CPT/HCPCS: 43239; 45378; 88305; 88342; G0121; J2704; J7030

== ENCOUNTER → 2022-10-30 17:01 | Outpatient (BNVA) | payer MEDICARE, SELFPAY | PROVIDERS: PCP Nurse Practitioner Family; Visit Provider Surgery | DX: K29.70 Gastritis, unspecified, without bleeding (principal); B96.81 Helicobacter pylori [H. pylori] as the cause of diseases classified elsewhere | CPT/HCPCS: 99212 ==

== ENCOUNTER → 2023-01-18 11:27 | Outpatient (BNVA) | payer MEDICARE, SELFPAY | PROVIDERS: PCP Nurse Practitioner Family; Visit Provider Nurse Practitioner Family | DX: M79.10 Myalgia, unspecified site (principal); F41.9 Anxiety disorder, unspecified; I10 Essential (primary) hypertension; E78.5 Hyperlipidemia, unspecified; I50.20 Unspecified systolic (congestive) heart failure; E55.9 Vitamin D deficiency, unspecified | CPT/HCPCS: 80053; 80061; 82306; 84443 ==

== ENCOUNTER → 2023-02-25 15:03 | Outpatient (BNVA) | payer MEDICARE, SELFPAY | PROVIDERS: PCP Nurse Practitioner Family; Visit Provider Nurse Practitioner Family | DX: J06.9 Acute upper respiratory infection, unspecified (principal) | CPT/HCPCS: 87486; 87581; 87633 ==

== ENCOUNTER → 2023-05-24 08:34 | Outpatient (BNVA) | payer MEDICARE, SELFPAY | PROVIDERS: PCP Nurse Practitioner Family; Visit Provider Nurse Practitioner Family | DX: R11.0 Nausea (principal); R10.9 Unspecified abdominal pain; R19.7 Diarrhea, unspecified; F41.9 Anxiety disorder, unspecified; M79.10 Myalgia, unspecified site; F33.9 Major depressive disorder, recurrent, unspecified; I10 Essential (primary) hypertension; E78.2 Mixed hyperlipidemia; I50.20 Unspecified systolic (congestive) heart failure | CPT/HCPCS: 80053; 80061; 82150; 82306; 83690; 84443; 85025 ==

== ENCOUNTER → 2023-05-31 10:15 | Outpatient (BNVA) | payer MEDICARE, SELFPAY | PROVIDERS: PCP Nurse Practitioner Family; Visit Provider Surgery | DX: Z86.19 Personal history of other infectious and parasitic diseases; R11.0 Nausea; R10.12 Left upper quadrant pain | CPT/HCPCS: 87338; 99214 ==

== ENCOUNTER 2023-06-03 09:42 | Outpatient (CLI) | payer MEDICARE, SELFPAY ==
--- NOTE | 2023-06-03 10:00 | NM_ITS ---
WS: [id number] NUCLEAR MEDICINE HIDA SCAN CLINICAL INFORMATION: evalute gallbladder function, continued nausea and diarrhea TECHNIQUE: Following intravenous administration of 8.3 mCi of technetium 99m mebrofenin, images of th e abdomen were obtained over the course of 60 minutes. Next, gallbladder ejection fraction was determ ined by obtaining preprandial and one-hour postprandial images of the gallbladder following oral kim stion of Ensure. COMPARISON: None. FINDINGS: Normal hepatic uptake at 5 minutes. Normal hepatic excretion. Gallbladder is visualized by 20 minutes . No evidence of acute cholecystitis. Normal common bile duct and small bowel activity. Normal gallbladder ejection fraction 97% within normal limits. No evidence of chronic cholecystitis. IMPRESSION: 1. No evidence of acute or chronic cholecystitis. 2. Normal gallbladder ejection fraction 97% within normal limits.
== END 2023-06-03 09:43 | disposition home or self-care (01) ==
PROVIDERS: PCP Nurse Practitioner Family; Visit Provider Nurse Practitioner Family
DX: R11.0 Nausea (principal); R10.9 Unspecified abdominal pain; R19.7 Diarrhea, unspecified
CPT/HCPCS: 78227; 80053; 80061; 82150; 82306; 83690; 84443; 85025; A9537

== ENCOUNTER → 2023-06-06 16:41 | Outpatient (BNVA) | payer MEDICARE, SELFPAY | PROVIDERS: PCP Nurse Practitioner Family; Visit Provider Surgery | DX: Z09 Encounter for follow-up examination after completed treatment for conditions other than malignant neoplasm (principal); K80.50 Calculus of bile duct without cholangitis or cholecystitis without obstruction; Z79.899 Other long term (current) drug therapy | CPT/HCPCS: 99212 ==

== ENCOUNTER 2023-06-20 05:48 | Day surgery (SDC) | payer MEDICARE, SELFPAY ==
[2023-06-20] VITALS (10 sets, daily range): BP systolic 128–158; BP diastolic 51–84; PULSE 54–82; RESP 16–18; TEMP 36.1–36.4; O2SAT 94–100; BMI 21.9
--- NOTE | 2023-06-20 06:38 | ANES.PREANE2 ---
Pre-Anesthetic Assessment Height/Weight: Height 1.6 m Weight 56.245 kg Temp Pulse Resp BP Pulse Ox O2 Del Method 97.6 F 60 17 154/76 94 Room Air 06/20/23 06:08 06/20/23 06:08 06/20/23 06:08 06/20/23 06:08 06/20/23 06:08 06/20/23 06:10 Preop Diagnosis: chronic nausea Operation Date: 06/20/23 07:00 Proposed Procedures p 77769 lap tatiana K80.50(Not Applicable) - Nigel Pace DO Familial anesthetic complications: none Was Beta Tito taken within 24 hours: Yes Was Clonidine taken within 24 hours: N/A Last intake: Intake Last Liquid Date 06/19/23 Last Liquid Time 22:00 Last Solid Date 06/19/23 Last Solid Time 21:30 Social No alcohol and No tobacco Exam alert, oriented x 3, clear to auscultation bilaterally and regular rate & rhythm Airway Submandibular: within normal limits Cervical ROM: within normal limits Mallampati: Class I Dentition: false Comments: Comments: Edentulous History/ROS No significant history except as noted and No significant complaints CV/HEM Coronary Artery Disease and Hypertension 07/03 cath Conclusions ? 1. There is moderate mid LAD stenosis. s/p FFR which had a non-ischemic value of 0.88. ? 2. Normal right and left sided cardiac pressures. ? 3. Mild left ventricular systolic dysfunction. Ejection fraction of 45%. Recommendations ? * Aggressive risk factor control. ? * Outpatient cardiology follow up. 07/03 echo CONCLUSIONS ?LV systolic function is mildly reduced with EF of 40-45%. ?Regional wall motion abnormalities as described above ?Grade 1 diastolic dysfunction ?No significant valvular heart disease. ?No comparison studies are available. None reported Hepatic None reported GI Gastroesophageal Reflux Disease chronic nausea no vomiting Metabolic Hyperlipidemia Musc/skel None reported Neuropsych None reported Anesthetic Plan ASA status: 3 Anesthesia: General Risk of > 500 ml blood loss (7ml/kg in children): No Medications/Allergies Home Medications Medication Instructions Recorded Confirmed Last Taken Type lisinopril 10 mg tablet 10 mg PO DAILY 90 days #90 tabs 01/07/23 06/19/23 06/19/23 Rx metoprolol tartrate 25 mg tablet 12.5 mg (1/2 x 25 mg) PO BID #90 1006/20/23 06/20/23 Rx tabs pravastatin 20 mg tablet See Rx Instructions .Route 04/05/23 06/19/23 06/19/23 Rx .COMPLEX #90 tabs ondansetron 4 mg disintegrating 4 mg PO Q6H PRN nausea and 04/23/23 06/19/23 Unknown Rx tablet vomiting #30 tabs acetaminophen-caffeine 500 mg-65 1 tab PO Q4H PRN pain 30 days #120 05/24/23 06/19/23 Unknown Rx mg tablet (Excedrin Tension tabs Headache) buspirone 10 mg tablet 10 mg PO TID PRN anxiety #90 tabs 05/24/23 06/19/23 Unknown Rx citalopram 20 mg tablet 20 mg PO DAILY 90 days #90 tabs 05/24/23 06/19/23 06/19/23 Rx levocetirizine 5 mg tablet (Xyzal) 5 mg PO DAILY PRN Allergy Symptoms 05/24/23 06/19/23 06/19/23 Rx 90 days #90 tabs Allergies Allergy/AdvReac Type Severity Reaction Status Date / Time No Known Allergies Allergy Verified 06/19/23 13:34 [facility] Anesthesia Medical History Microscopic hematuria History of gastric ulcer Vitamin D insufficiency Anxiety Hypertension Hyperlipidemia Basal cell carcinoma Surgical History History of esophagogastroduodenoscopy (EGD) 4-5 yrs ago History of appendectomy History of tubal ligation Family History Other Hypertension Social History Smoking and tobacco/nicotine status: former use of tobacco/nicotine Quit status (tobacco/nicotine): has quit using Year quit tobacco: 1970 Alcohol intake: never Substance/Drug Use: never Household members: spouse Data Anesthesia Cardiac Studies: Echocardiogram Ultrasound 06/16/20
--- NOTE | 2023-06-20 06:47 | ECG_ITS ---
[facility] Test Date: 2023-06-20 Pat Name: Paulina Warren Department: Room: Gender: Female Manager Of Internal Audit: : 1945 Requested By: Nigel Pace Order Number: [id number] Cruz MD: Rya Murguia M.D. Measurements Intervals [place] Rate: 52 P: 73 TN: 161 QRS: 63 QRSD: 94 T: 70 QT: 404 QTc: 377 Interpretive Statements SINUS BRADYCARDIA Compared to ECG 02/18/2019 14:00:10 Sinus rhythm no longer present Electronically Signed On 06-20-2023 14:51:07 TAXI SERVICER by Ray Murguia M.D. [id number] f
[2023-06-20] MEDS: sodium chloride 0.9% 1,000 ML 30 ML IV (06:52)
[2023-06-20] MEDS: scopolamine 1.5 Patch 1 PATCH TRANSDERMA (06:52)
[2023-06-20] MEDS: ceFAZolin 2,000 MG in sodium chloride 0.9% (plus) 50 ML 100 MG IV (07:01)
--- NOTE | 2023-06-20 07:01 | W.PM.OPSUD ---
Surgery/Procedure H&P Update DATE OF PROCEDURE: June 20, 2023 DATE H&P PERFORMED: 06/06/23 H&P UPDATE INFORMATION: I have reviewed H&P completed within last 30 days, I have examined patient prior to procedure and No changes to prior documentation PREOP DIAGNOSIS: chronic nausea PLANNED PROCEDURE: Operation Date: 06/20/23 07:00 Proposed Procedures p [id number] lap tatiana K80.50(Not Applicable) - Nigel Pace DO
[2023-06-20] MEDS: lidocaine-epi 2% PF 1:200,000 20 mL SDV XX (07:29)
--- NOTE | 2023-06-20 07:43 | P.OP_ITS ---
Operative Report Date of procedure: June 20, 2023 Surgeon: Nigel Pace DO Brief History: This very pleasant 77-year-old female who was diagnosed with biliary colic, biliary hyperkinesia and right upper quadrant syndrome. Laparoscopic cholecystectomy was indicated. The risk and benefits were explained and documented. Procedure: Preoperative diagnosis: Biliary colic, biliary hyperkinesia Postoperative diagnosis: Same Procedure performed: Laparoscopic cholecystectomy Surgeon: Dr. Nigel Pace DO Estimated blood loss: 5 mL Specimens: Gallbladder to pathology Complications: None apparent Description of procedure: Patient was wheeled into the operative room and placed on the OR table in a supine position. Abdomen was inspected prepped and draped in usual sterile f ashion. Time-out was performed and all present were in agreement. A 15 blade scalp was used to make a stab incision in the left upper quadrant and intra- abdominal insufflation was achieved using a Veress needle. After localizing the tissue incisions were made and a 5 millimeter trocar was placed into the umbilicus as well as 2 in the right upper quadrant. A 12 millimeter trocar was placed in the epigastrium. Gallbladder was grasped and elevated. The triangle of Calot was carefully dissected using blunt dissection and electrocautery until the triangle of Calot clearly identified. The cystic duct was clipped proximally and double clipped distally. The duct was then ligated proximally. The cystic artery was doubly clipped and ligated. The gallbladder was then removed from the liver bed using electrocautery. The gallbladder was removed from the abdomen using an Endo-Catch bag through the epigastric incision. The liver bed was inspected and no bleeding was seen. The abdomen was irrigated and suctioned. All ports removed. Skin was washed and dried. Incisions were closed with 4-0 Monocryl in a subcuticular interrupted fashion. Skin glue was applied. Patient tolerated the procedure well.
[2023-06-20] MEDS: HYDROcodone-acetaminophen 7.5-325 mg Tablet 1 TAB PO (08:49)
--- NOTE | 2023-06-20 20:19 | ANE.PACU2 ---
Inpatient post-anesthesia follow up: Airway intact: Yes Vital signs: Temperature 97.4 F Pulse Rate 58 Respiratory Rate 16 Blood Pressure 137/75 Pulse Oximetry 100 Oxygen Delivery Me thod Room Air Oxygen Flow Rate Fraction of Inspir ed Oxygen Hydration adequate: Yes Nausea and vomiting: No Pain level: 3 Mental status: Baseline
== END 2023-06-20 09:20 | disposition home or self-care (01) ==
PROVIDERS: PCP Nurse Practitioner Family; Visit Provider Surgery
PROC: 0FT44ZZ Resection of Gallbladder, Percutaneous Endoscopic Approach (ICD-10-PCS; CPT 47562; principal; 2023-06-20 07:00)
DX: K81.1 Chronic cholecystitis (principal); I25.10 Atherosclerotic heart disease of native coronary artery without angina pectoris; I10 Essential (primary) hypertension; E78.5 Hyperlipidemia, unspecified; Z87.891 Personal history of nicotine dependence
CPT/HCPCS: 47562; 88304; 93005; J0690; J1100; J2405; J2704; J2710; J3010; J3490; J7030

== ENCOUNTER → 2023-07-03 10:22 | Outpatient (BNVA) | payer MEDICARE, SELFPAY | PROVIDERS: PCP Nurse Practitioner Family; Visit Provider Surgery | DX: Z90.49 Acquired absence of other specified parts of digestive tract (principal); Z98.890 Other specified postprocedural states | CPT/HCPCS: 99024 ==

== ENCOUNTER → 2023-09-04 11:31 | Outpatient (BNVA) | payer MEDICARE, SELFPAY | PROVIDERS: PCP Nurse Practitioner Family; Visit Provider Nurse Practitioner Family | DX: I10 Essential (primary) hypertension (principal); E78.2 Mixed hyperlipidemia; E55.9 Vitamin D deficiency, unspecified; M79.10 Myalgia, unspecified site; I50.20 Unspecified systolic (congestive) heart failure; F33.9 Major depressive disorder, recurrent, unspecified; J30.2 Other seasonal allergic rhinitis; R00.2 Palpitations; F41.9 Anxiety disorder, unspecified; M81.0 Age-related osteoporosis without current pathological fracture; F33.0 Major depressive disorder, recurrent, mild; Z12.31 Encounter for screening mammogram for malignant neoplasm of breast | CPT/HCPCS: 80053; 80061; 82306; 84443; 85025 ==

== ENCOUNTER 2023-09-13 11:49 | Outpatient (CLI) | payer MEDICARE, SELFPAY ==
--- NOTE | 2023-09-13 13:00 | XR_ITS ---
WS: [id number] SCREENING DEXA SCAN mgMEDIA CLINICAL INFORMATION: screening COMPARISON: 2021 FINDINGS: The L1-L4 bone mineral density measures 1.005 g/cm2. This corresponds to a T score score of -1.5 and Z score of 0.7. Left femoral neck bone mineral density measures 0.663 g/cm2. This corresponds to a T score of -2.7 an d Z score of -0.5. Right femoral neck bone mineral density measures 0.661 g/cm2. This corresponds to a T score -2.8of an d Z score of -0.5. Mean femoral neck bone mineral density measures 0.662 g/cm2. This corresponds to a T score of -2.7 an d Z score of -0.5. XR/XR DEXA axial skeleton* [id number] IMPRESSION: Osteopenia lumbar spine. Osteoporosis femoral necks. Patient's FRAX calculated 10 year probability for major osteoporotic fracture i s 23.7% and osteoporotic hip fracture is 10.0%. Lumbar spine bone mineral density increased 1.5% since 2021. Femoral neck bone mineral density decreased -6.4%
--- NOTE | 2023-09-13 13:30 | MM_ITS ---
WS: [id number] VIEWS: MLO and CC views both breasts. 3D digital tomosynthesis is also included in this exam. Comparison made with prior exam of 09/01/2008, 10/27/2010, 10/30/2011, 03/30/2013, 05/05/2014, 07/12/2015, 11/01/2016, 11/04/2017, 10/21/2018, 03/09/2020, 09/05/2022,. Findings: There was no sign of mass, architectural distortion or suspicious calcification in either breast. The re are scattered areas of fibroglandular density MM/[place] [id number] Impression: BI-RADS: 1-Negative FOLLOW-UP: 1 Year Follow-up This mammogram was also analyzed by the Computer Aided Detection System R2 Imag e Cold Molding Press Operator.
== END 2023-09-13 11:50 | disposition home or self-care (01) ==
LOC: RAD 11:49
PROVIDERS: PCP Nurse Practitioner Family; Visit Provider Nurse Practitioner Family
DX: Z12.39 Encounter for other screening for malignant neoplasm of breast (principal); M81.0 Age-related osteoporosis without current pathological fracture
CPT/HCPCS: 77063; 77067; 77080

== ENCOUNTER → 2023-10-03 12:57 | Outpatient (BNVA) | payer MEDICARE, SELFPAY | PROVIDERS: PCP Nurse Practitioner Family; Visit Provider Nurse Practitioner Family | DX: L57.0 Actinic keratosis (principal); S51.812A Laceration without foreign body of left forearm, initial encounter; X58.XXXA Exposure to other specified factors, initial encounter; L82.1 Other seborrheic keratosis; D22.39 Melanocytic nevi of other parts of face | CPT/HCPCS: 17000; 99203 ==

== ENCOUNTER → 2024-03-25 11:30 | Outpatient (BNVA) | payer MEDICARE, SELFPAY | PROVIDERS: PCP Nurse Practitioner Family; Visit Provider Nurse Practitioner Family | DX: I11.0 Hypertensive heart disease with heart failure (principal); I50.20 Unspecified systolic (congestive) heart failure; M79.10 Myalgia, unspecified site | CPT/HCPCS: 80053; 80061; 84443; 85025 ==

== ENCOUNTER → 2024-10-05 12:39 | Outpatient (BNVA) | payer MEDICARE, SELFPAY | PROVIDERS: PCP Nurse Practitioner Family; Visit Provider Nurse Practitioner Family | DX: L81.4 Other melanin hyperpigmentation (principal); D18.01 Hemangioma of skin and subcutaneous tissue; D69.2 Other nonthrombocytopenic purpura; L56.5 Disseminated superficial actinic porokeratosis (DSAP); Z08 Encounter for follow-up examination after completed treatment for malignant neoplasm; Z85.828 Personal history of other malignant neoplasm of skin; L82.0 Inflamed seborrheic keratosis; L29.89 Other pruritus; R20.9 Unspecified disturbances of skin sensation; R20.8 Other disturbances of skin sensation; L53.8 Other specified erythematous conditions; D48.5 Neoplasm of uncertain behavior of skin | CPT/HCPCS: 11102; 17000; 17110; 99213 ==

== ENCOUNTER → 2024-10-14 14:16 | Outpatient (BNVA) | payer MEDICARE, SELFPAY | PROVIDERS: PCP Nurse Practitioner Family; Visit Provider Nurse Practitioner Family | DX: I10 Essential (primary) hypertension (principal); M79.10 Myalgia, unspecified site; I50.20 Unspecified systolic (congestive) heart failure | CPT/HCPCS: 80053; 80061; 82306; 82607; 83735; 84443; 85025 ==

== ENCOUNTER 2024-10-20 09:55 | Outpatient (CLI) | payer MEDICARE, SELFPAY ==
--- NOTE | 2024-10-20 09:45 | MM_ITS ---
WS: [id number] BILATERAL 3D TOMOSYNTHESIS DIGITAL SCREENING MAMMOGRAPHY WITH CAD CLINICAL INFORMATION: Z12.39 - Encounter for other screening for malignant neop... HISTORY: Screening mammogram. No current complaints. COMPARISON: 2023 TECHNIQUE: Bilateral CC and MLO views. FINDINGS: Scattered fibroglandular densities bilaterally. No suspicious focal mass, asymmetry, calcifications, or architectural distortion. No evidence of malignancy. Vascular calcifications. MM/MM scr tomosynthesis [id number] IMPRESSION: DENSITY: There are scattered areas of fibroglandular density. BI-RADS: 2 - Benign. FOLLOW UP: 1 Year Follow-up Recommend return to annual screening mammography.
== END 2024-10-20 09:56 | disposition home or self-care (01) ==
LOC: RAD 09:56
PROVIDERS: PCP Nurse Practitioner Family; Visit Provider Nurse Practitioner Family
DX: Z12.39 Encounter for other screening for malignant neoplasm of breast (principal); R92.323 Mammographic fibroglandular density, bilateral breasts; R92.1 Mammographic calcification found on diagnostic imaging of breast
CPT/HCPCS: 77063; 77067

== ENCOUNTER → 2025-01-28 10:16 | Outpatient (BNVA) | payer MEDICARE, SELFPAY | PROVIDERS: PCP Nurse Practitioner Family; Visit Provider Nurse Practitioner Family | DX: I11.0 Hypertensive heart disease with heart failure (principal); R53.83 Other fatigue; M79.10 Myalgia, unspecified site; I50.20 Unspecified systolic (congestive) heart failure | CPT/HCPCS: 80053; 80061; 82306; 82607; 84443; 85025 ==